=== PATIENT | female | born 1975 | race African-American/Black ===

== ENCOUNTER 2016-10-10 10:00 | Inpatient (IN) | payer OTHER ==
--- NOTE | ~2016-10-10 | PN ---
Unit #: [id number] #: [id number] Patient: SMITA KASPER [id number] [facility] [address] [place] [address] [id number] MR#: [id number] NAME: SMITA KASPER ROOM: P110 Age: 41 Sex: F Admission Date: 10/10/2016 : 1975 Attending Physician: Anuel Manley M.D. Admitting Physician: Anuel Manley M.D. Primary Care Physician: Primary Care Physician Marisol DENNIS PROGRESS NOTES DATE 10/17/2016 DISCUSSION The patient offers no new complaints today. Staff reports that she has had no management or other issues. She is seen today in coverage for Dr. Manley who will resume her care on Thursday. Dictated by... Miles Abel M.D. CB/frieda TD: 10/18/2016 15:08 JOB #: [id number] SONNY PROGRESS NOTES Page 1 of 1 X Miles Abel MD PROGRESS NOTE
--- NOTE | ~2016-10-10 | HP ---
Unit #: [id number] #: [id number] Patient: CHIKA KASPER [id number] [place] [address] [id number] MR#: [id number] NAME: CHIKA KASPER ROOM: P125 Age: 41 Sex: F Admission Date: 10/10/2016 : 1975 Attending Physician: Anuel Manley M.D. Admitting Physician: Anuel Manley M.D. Primary Care Physician: Primary Care Physician No HISTORY AND PHYSICAL HISTORY OF PRESENT ILLNESS Chika is a 41 year old admitted to [address] [place] [address] with psychotic behavior. She is a poor historian, so her history is taken from her chart. PAST MEDICAL HISTORY High blood pressure. PAST SURGICAL HISTORY Nothing reported. ALLERGIES Latuda, Risperdal. SOCIAL HISTORY Smokes less than one-half pack per day. Drinks alcohol on occasion. Denies illicit drug use. FAMILY HISTORY Medically noncontributory. REVIEW OF SYSTEMS She does not answer all questions appropriately. There are no reports of nausea, vomiting, or diarrhea. She has had no cough or increased temperature. CURRENT MEDICATIONS 1. Fanapt 8 mg b.i.d. 2. Trazodone 150 mg q.h.s. 3. Neurontin 300 mg t.i.d. 4. Milk of Magnesia p.r.n. 5. Maalox p.r.n. 6. Tylenol p.r.n. PHYSICAL EXAMINATION GENERAL: Alert, well nourished. No apparent distress. VITAL SIGNS: Blood pressure 105/70, heart rate 94, respirations 16, and temperature 98.6. WEIGHT: 160. HEIGHT: 5 feet 4 inches. SKIN: Warm and dry without rash or lesion. HEENT: Normocephalic. TMs not viewed. Oral and nasal passages clear. Conjunctivae clear. PERRLA. EOMs intact. NECK: Supple without lymphadenopathy or thyromegaly. Unit #: [id number] #: [id number] Patient: CHIKA KASPER HEART: Regular rate and rhythm without murmur. LUNGS: Clear. ABDOMEN: Soft, nontender. : Not done. EXTREMITIES: No evidence of cyanosis, clubbing or edema. Moves all without focal deficit. NEUROLOGICAL: Unable to complete extended exam. She does move all extremities without focal deficit. Hand mails supervisor is equal and gait is normal. IMPRESSION Psychiatric admission. RECOMMENDATIONS PSYCHIATRIC: Per psychiatrist. MEDICAL: I see no contraindication to participate in this facility's activities. MEDICAL PROGNOSIS Good. MEDICAL CONDITION Stable. Dictated by... Caroline Weinstein P.A.-C. for Miranda Hubbard/frieda TD: 10/11/2016 08:35 JOB #: [id number] HISTORY AND PHYSICAL Page 1 of 1 X Caroline Weinstein HISTORY AND PHYSICAL
--- NOTE | ~2016-10-10 | DS ---
Unit #: [id number] #: [id number] Patient: SMITA KUMARI [id number] [facility] [place] [address] [id number] I MR#: [id number] NAME: SMITA KUMARI ROOM: P113 Age: 41 Sex: F Admission Date: 10/10/2016 : 1975 Discharge Date: 10/20/2016 Attending Physician: Anuel Manley M.D. Primary Care Physician: Primary Care Physician No DISCHARGE SUMMARY IDENTIFYING DATA Ms. Kumari is a 41-year-old female, who is a resident of [place], [place] and was self-referred to the hospital on a voluntary basis . DISCHARGE DIAGNOSES Psychiatric: Schizoaffective disorder, bipolar type, most recent episode depressed, recurrent, moderate, with psychosis; cannabis abuse, moderate. Medical: None. Stressors: Moderate psychosocial stressors. HISTORY OF PRESENT ILLNESS Please see initial psychiatric evaluation for details. PAST PSYCHIATRIC HISTORY Please see initial psychiatric evaluation for details. PAST MEDICAL HISTORY Please see initial psychiatric evaluation for details. HOSPITAL COURSE The patient [facility] and was oriented to the hospital environment. Routine p.r.n. medications were initiated, and she was started back on home medications including her Fanapt and trazodone and Neurontin and was closely monitored. She was taking medications regularly and was tolerating them fairly well and was able to show a decent and therapeutic response with improvement in depression and psychosis and was willing to continue treatment on an outpatient basis and as such, it was decided that she will be discharged home and will continue treatment on an outpatient basis. DISCHARGE MEDICATIONS Fanapt 8 mg b.i.d. for psychosis, trazodone 150 mg at bedtime for sleep, Cogentin 0.5 mg b.i.d. for EPS, and Neurontin 300 mg t.i.d. for anxiety. DISCHARGE CONDITION Stable. PROGNOSIS Fair. Dictated by... Anuel Manley M.D. Unit #: [id number] #: [id number] Patient: SMITA KUMARI IAA/modl TD: 10/20/2016 06:47 JOB #: [id number] DISCHARGE SUMMARY Page 1 of 1 X Anuel Manley MD DISCHARGE SUMMARY
--- NOTE | ~2016-10-10 | PN ---
Unit #: [id number] #: [id number] Patient: SMITA KUMARI [id number] [facility] [address] [place] [address] [id number] I MR#: [id number] NAME: SMITA KUMARI ROOM: [facility] Age: 41 Sex: F Admission Date: 10/10/2016 : 1975 Attending Physician: Anuel Manley M.D. Admitting Physician: Anuel Manley M.D. Primary Care Physician: Primary Care Physician Marisol DENNIS PROGRESS NOTES DATE 10/12/2016 DISCUSSION Ms. Kumari is a 41-year-old female with mood disorder and psychosis who was seen today and chart was reviewed and case was discussed with the staff. She remains anxious, withdrawn, disorganized and has not been able to carry on meaningful conversation. However, she has been taking the medications which were just initiated yesterday without any tolerability issues. MENTAL STATUS EXAMINATION Middle-aged white female who was casually dressed with fair personal hygiene, appears to be in no acute distress or discomfort. She was awake and alert with impaired attention and concentration. Her mood was anxious with congruent affect. She denies any suicidal or homicidal ideations. Also, denies any auditory or visual hallucinations. Her insight and judgement remains slightly impaired. TREATMENT PLAN 1. We will continue her on her current medications and treatment protocol. We will monitor her response and make further adjustments as needed. 2. We will continue to follow up. Dictated by... Miranda Pearce/moira TD: 10/13/2016 21:57 JOB #: [id number] Unit #: [id number] #: [id number] Patient: SMITA KUMARI PROGRESS NOTES Page 1 of 1 X Anuel Manley MD PROGRESS NOTE
--- NOTE | ~2016-10-10 | PN ---
Unit #: [id number] #: [id number] Patient: SMITA KASPER [id number] [facility] [address] [place] [address] [id number] I MR#: [id number] NAME: SMITA KASPER ROOM: [facility] Age: 41 Sex: F Admission Date: 10/10/2016 : 1975 Attending Physician: Anuel Manley M.D. Admitting Physician: Anuel Manley M.D. Primary Care Physician: Primary Care Physician Marisol DENNIS PROGRESS NOTES DATE 10/16/2016 DISCUSSION Ms. Michelle is a 41-year-old female who was seen today and chart was reviewed and case was discussed with the staff. She has been anxious, withdrawn though has not shown any agitation, irritability or behavioral problems and has been cooperative with treatment recommendations as he has been taking medications and tolerating them fairly well with no reported side effects. MENTAL STATUS EXAMINATION Middle-aged female who was casually dressed with fair personal hygiene and appears to be in no acute distress or discomfort. She was awake and alert with impaired attention and concentration. Her mood was anxious and depressed with congruent affect. She denies any suicidal or homicidal ideations. Her insight and judgement remains slightly impaired. TREATMENT PLAN 1. Will continue on current medications and treatment protocol. Will monitor her response to the medications and make further adjustments as needed. 2. Will continue to follow up. Dictated by... Anuel Manley M.D. IAA/yobani TD: 10/18/2016 21:52 JOB #: [id number] Unit #: [id number] #: [id number] Patient: SMITA KASPER PROGRESS NOTES Page 1 of 1 X Anuel Manley MD PROGRESS NOTE
--- NOTE | ~2016-10-10 | PN ---
Unit #: [id number] #: [id number] Patient: SMITA KASPER [id number] [facility] [address] [place] [address] [id number] I MR#: [id number] NAME: SMITA KASPER ROOM: P110 Age: 41 Sex: F Admission Date: 10/10/2016 : 1975 Attending Physician: Anuel Manley M.D. Admitting Physician: Anuel Manley M.D. Primary Care Physician: Marisol Primary Care Physician SONNY PROGRESS NOTES DATE 10/14/2016. DISCUSSION Ms. Phillips is a 41-year-old female with mood disorder. The patient was seen and chart was reviewed. The patient was discussed with the staff. She has been anxious, withdrawn and paranoid. She has been cooperative with treatment recommendations. She has been taking medication and tolerating them. She reports no side effects. MENTAL STATUS EXAMINATION The patient is a middle-aged female who is casually dressed with fair personal hygiene. She appears to be in no acute distress or discomfort. She was awake and alert with impaired attention and concentration. Her mood was anxious with congruent affect. Her speech was slow and restricted to content. Her thought processes were disorganized with some looseness of associations. Her insight and judgement remain significantly impaired. TREATMENT PLAN 1. We will continue her on her current medications and treatment protocol. We will monitor her response to the medication and make further adjustments as needed. 2. We will continue to follow her. Dictated by... Miranda Pearce/miki TD: 10/15/2016 13:15 JOB #: [id number] Unit #: [id number] #: [id number] Patient: SMITA KASPER PEAMIRNA PROGRESS NOTES Page 1 of 1 X Anuel Manley MD PROGRESS NOTE
--- NOTE | ~2016-10-10 | PA ---
Unit #: [id number] #: [id number] Patient: SMITA KASPER [id number] [facility] [address] [place] [address] [id number] I MR#: [id number] NAME: SMITA KASPER ROOM: P125 Age: 41 Sex: F Admission Date: 10/10/2016 : 1975 Date of Assessment: Attending Physician: Anuel Manley M.D. Admitting Physician: Anuel Manley M.D. PSYCHIATRIC ASSESSMENT DATE OF SERVICE 10/10/2016. IDENTIFYING DATA Ms. Jacqueline Michelle is a 41-year-old single female, who is a resident of [place], [place], and was self-referred to the hospital on a voluntary basis. CHIEF COMPLAINT "I'm not taking my medicine, I'm out of it." HISTORY OF PRESENT ILLNESS Ms. Jacqueline Michelle is a 41-year-old female with history of mood disorder and substance abuse, who was self-referred to the hospital and reporting that she has been out of the medications and is afraid that what she might end up doing and does not want anything to get it worse and reports presumably getting away with what she actually did; however, the patient reports getting a charge for criminal trespassing and she was not able to detail the situation reporting that she was feeling confused and she stared at the assessment staff and repeated the same thing over and over and stated that she was getting her medications refilled from [facility], but reports that she now has not seen the doctor to get the refills and reports that she has not been taking her medications and has not taken them for the last couple of weeks and that she has been decompensating and reports going to correction due to being in a neighborhood for a man and hearing voices that tell her to do things like kill a specific man in the neighborhood and the patient reports that she has been hearing voices to kill the specific man and another woman. The patient reports this man and woman are friends and she takes the medications and has refilled it from [facility] and has been diagnosed and treated for schizophrenia and bipolar and reports not wanting to harm herself as she does not want to go to hell. She was seen to be quite disorganized, agitated, irritable, and danger to self and others and as such, a recommendation for inpatient level of care for safety and stabilization was made and the patient was transferred to us. SUBSTANCE ABUSE HISTORY The patient reports occasional experimentation with cannabis, but denies any other drug abuse. PAST PSYCHIATRIC HISTORY The patient has had a history of inpatient and outpatient psychiatric treatment and has been diagnosed and treated for schizoaffective disorder. Unit #: [id number] #: [id number] Patient: SMITA KASPER Review of the medical records indicate that she is supposed to be on Fanapt, gabapentin, and trazodone, but has been off the medication and has been decompensating. PAST MEDICAL HISTORY The patient's medical history is insignificant. ALLERGIES No known medication allergies. PERSONAL AND SOCIAL HISTORY A 41-year-old female, who reports that she is single, unemployed, and lives at home with her parents and has fairly decent social support system. MENTAL STATUS EXAMINATION Middle-aged female, who was casually dressed with fair personal hygiene, appears to be in no acute distress or discomfort. She was awake and alert on interaction with intact orientation to time, place, and person. Her mood was anxious and depressed with a congruent affect. Her speech was fluent and tangential. Her thought processes were disorganized with some looseness of associations and flight of ideas and paranoid ideations and delusional behavior. Her insight and judgment remain significantly impaired. DIAGNOSTIC IMPRESSION Psychiatric: Schizoaffective disorder, bipolar type, most recent episode depressed, recurrent, moderate, with psychosis and cannabis abuse, moderate. Medical: None. Stressors: Moderate psychosocial stressors. TREATMENT PLAN 1. The patient has presented with a history of chronic mental illness and has been decompensating due to poor compliance with medications and will need inpatient hospitalization for safety and stabilization. We will start her back on her home medications and we will adjust the medications and monitor response. 2. Supportive therapy was provided to the patient. 3. Safe, structured, and nourishing environment will be provided. ESTIMATED LENGTH OF STAY 5 to 7 days. ABILITY TO HELP SELF Limited. WILLINGNESS TO HELP SELF The patient appears to be willing to help self. STRENGTHS 1. Communicative. 2. Cooperative. PROBLEMS 1. Chronic dysphoric symptoms. 2. Poor social support system. DISCHARGE CRITERIA This will be contingent upon the patient's ability to show resolution of Unit #: [id number] #: [id number] Patient: SMITA KASPER her depression and psychosis and her ability to stay safe to herself, particularly after discharge from the hospital. Dictated by... Miranda Pearce/soo TD: 10/11/2016 11:24 JOB #: [id number] PSYCHIATRIC ASSESSMENT Page 1 of 1 X Anuel Manley MD X PSYCHIATRIC ASSESSMENT
--- NOTE | ~2016-10-10 | PN ---
Unit #: [id number] #: [id number] Patient: SMITA KASPER [id number] [facility] [address] [place] [address] [id number] I MR#: [id number] NAME: SMITA KASPER ROOM: P110 Age: 41 Sex: F Admission Date: 10/10/2016 : 1975 Attending Physician: Anuel Manley M.D. Admitting Physician: Anuel Manley M.D. Primary Care Physician: Primary Care Physician Marisol SHEPPARD NOTES DATE 10/13/2016 DISCUSSION Ms. Michelle is a 41-year-old female who was seen today and chart was reviewed and case was discussed with the staff. She remains anxious, withdrawn and rather seclusive to herself. Meanwhile, she has been cooperative with treatment recommendations. She has been taking medications and tolerating them fairly well with no reported side effects. MENTAL STATUS EXAMINATION Middle-aged female who was casually dressed with fair personal hygiene, appears to be in no acute distress or discomfort. She was awake and alert with impaired attention and concentration. Her mood was anxious with congruent affect. Her speech was slow and restricted to content. Her thought processes were disorganized with some looseness of associations. Her insight and judgement remains significantly impaired. TREATMENT PLAN 1. We will continue her on her current medications and treatment protocol. We will monitor her response to the medication and make further adjustments as needed. 2. We will continue to follow up. Dictated by... Miranda Pearce/moira TD: 10/14/2016 22:22 JOB #: [id number] Unit #: [id number] #: [id number] Patient: SMITA KASPER DEBORAHMIRNA PROGRESS NOTES Page 1 of 1 X Anuel Manley MD PROGRESS NOTE
--- NOTE | ~2016-10-10 | PN ---
Unit #: [id number] #: [id number] Patient: SMITA KUMARI [id number] [facility] [address] [place] [address] [id number] I MR#: [id number] NAME: SMITA KUMARI ROOM: P110 Age: 41 Sex: F Admission Date: 10/10/2016 : 1975 Attending Physician: Anuel Manley M.D. Admitting Physician: Anuel Manley M.D. Primary Care Physician: Marisol Primary Care Physician PEAMIRNA PROGRESS NOTES DATE October 15, 2016. DISCUSSION Ms. Kumari is a 41-year-old, -Monegas[place] female who was seen today and chart was reviewed. Her case was discussed with the staff. She has been anxious, withdrawn, and rather seclusive to herself. Meanwhile, she has been cooperative with treatment recommendations and has been taking the medications and tolerating them fairly well with no reported side effects. MENTAL STATUS EXAMINATION Middle age, -[place]onegas[place] female who was casually dressed with a fair personal hygiene and appears to be in no acute distress or discomfort. She was awake and alert with impaired attention and concentration. Her mood was (1) affect. Her speech was pressured and tangential. Her thought process was disorganized with looseness of association and flight of ideas. She denies any suicidal or homicidal ideation and also denies any auditory or visual hallucinations. Her insight and judgement remain significantly impaired. TREATMENT PLAN 1. We will continue on current medications and treatment protocol. Will monitor her response to medications and make further adjustments as needed. 2. We will continue to follow up. Dictated by... Miranda Pearce/mercedes TD: 10/17/2016 07:26 JOB #: [id number] Unit #: [id number] #: [id number] Patient: SMITA KUMARI PEAMIRNA PROGRESS NOTES Page 1 of 1 X Anuel Manley MD PROGRESS NOTE
--- NOTE | ~2016-10-10 | PN ---
Unit #: [id number] #: [id number] Patient: SMITA KASPER [id number] [facility] [address] [place] [address] [id number] MR#: [id number] NAME: SMITA KASPER ROOM: [facility] Age: 41 Sex: F Admission Date: 10/10/2016 : 1975 Attending Physician: Anuel Manley M.D. Admitting Physician: Anuel Manley M.D. Primary Care Physician: Primary Care Physician Marisol DENNIS PROGRESS NOTES DATE 10/11/2016 DISCUSSION Ms. Michelle is a 41-year-old female who was seen today and chart was reviewed and case was discussed with the staff. She has been anxious, withdrawn though has not shown any agitation, irritability has been cooperative with treatment recommendations as she has been taking the medications and tolerating them fairly well with no reported side effects. MENTAL STATUS EXAMINATION Middle-aged female who was casually dressed with fair personal hygiene, appears to be in no acute distress or discomfort. She was awake and alert with impaired attention and concentration. Her mood was anxious with congruent affect. Her speech was fluent and tangential. Her thought processes were disorganized with some looseness of associations and flight of ideas, paranoid ideations and auditory or visual hallucinations. Her insight and judgement remains significantly impaired. TREATMENT PLAN 1. We will continue her on her current medications and treatment protocol. We will monitor her response to the medications and make further adjustments as needed. 2. We will continue to follow up. Dictated by... Miranda Pearce/moira TD: 10/13/2016 01:37 JOB #: [id number] Unit #: [id number] #: [id number] Patient: SMITA KASPER PROGRESS NOTES Page 1 of 1 X Anuel Manley MD PROGRESS NOTE
--- NOTE | ~2016-10-10 | PN ---
Unit #: [id number] #: [id number] Patient: SMITA KASPER [id number] [facility] [address] [place] [address] [id number] MR#: [id number] NAME: SMITA KASPER ROOM: 13 Age: 41 Sex: F Admission Date: 10/10/2016 : 1975 Attending Physician: Anuel Manley M.D. Admitting Physician: Anuel Manley M.D. Primary Care Physician: Primary Care Physician Marisol DENNIS PROGRESS NOTES DATE 10/19/2016 DISCUSSION The patient is seen in the dayroom today. She is presently interacting with peers and offers no new complaints. Dr. Manley will reassume care of the patient on 10/20/2016. Dictated by... Miles Abel M.D. CB/moira TD: 10/20/2016 04:31 JOB #: [id number] SONNY PROGRESS NOTES Page 1 of 1 X Miles Abel MD PROGRESS NOTE
--- NOTE | ~2016-10-10 | PN ---
Unit #: [id number] #: [id number] Patient: SMITA KUMARI [id number] [facility] [address] [place] [address] [id number] MR#: [id number] NAME: SMITA KUMARI ROOM: P110 Age: 41 Sex: F Admission Date: 10/10/2016 : 1975 Attending Physician: Anuel Manley M.D. Admitting Physician: Anuel Manley M.D. Primary Care Physician: Primary Care Physician Marisol SHEPPARD NOTES DATE OF SERVICE: 10/17/2016 SUBJECTIVE Ms. Kumari is a 41-year-old female, who was seen today and chart was reviewed and the case was discussed with the staff. She has been anxious, irritable, impulsive, with elated mood, pressured speech, flight of ideas, and has been exhibiting some acute psychosis and hearing voice is telling that the aliens are coming down and she wants to know if I can help her develop some strategies and save some food before the alien invasion and has some difficulty to be redirected and has been exhibiting out of touch with reality, behavior, and significant paranoia and delusional behavior. She has been taking she medications, but has not yet been able to show a therapeutic response. MENTAL STATUS EXAMINATION Middle-aged female, who was casually dressed with fair personal hygiene and appears to be in no acute distress or discomfort. She was awake and alert with impaired attention and concentration. Her mood was anxious with a congruent affect. She denies any suicidal or homicidal ideations. Her insight and judgment remain significantly impaired. TREATMENT PLAN 1. We will continue her on her current medications and treatment protocol. We will monitor her response and make further adjustments as needed. 2. We will continue to follow up. Dictated by... Miranda Pearce/soo TD: 10/17/2016 18:17 JOB #: [id number] Unit #: [id number] #: [id number] Patient: SMITA KUMARI PEAMIRNA PROGRESS NOTES Page 1 of 1 X Vineet,Anuel BOYD X PROGRESS NOTE
[2016-10-11 11:19] LABS: BASOPHIL% 0.8 % (0-2.5); EOSINOPHIL# 0.2 X10e3 (0-0.7); EOSINOPHIL% 4.5 % (0.0-7.0); HEMATOCRIT 37.4 % (35.0-45.0); HEMOGLOBIN 12.2 gm/dL (12.0-16.0); LYMPHOCYTE# 1.9 X10e3 (1.0-3.5); MEAN CELL VOLUME 89.7 FL (83-96); MEAN CORPUSCULAR HEMOGLOBIN 29.3 PG (28-34); MEAN CORPUSCULAR HGB CONC 32.7 g/dL (30-36); MEAN PLATELET VOLUME 8.5 FL (6.5-11.5); MONOCYTE# 0.4 X10e3 (0-1.0); NEUTROPHIL# 1.7 X10e3 (1.5-7.1); NEUTROPHIL% 40.7 % (40-75); PLATELET COUNT 219 X10e3 (140-420); RED BLOOD COUNT 4.17 X10e (3.90-5.30); RED CELL DISTRIBUTION WIDTH 14.6 % (11.0-15.5); WHITE BLOOD COUNT 4.2 X10e3 (4.0-10.5)
[2016-10-11 11:20] LABS: DIFF IND NO
[2016-10-11 13:21] LABS: THYROID STIMULATING HORMONE 1.11 uIU/ml (0.34-5.60)
[2016-10-11 13:31] LABS: FREE THYROXIN (T4) 0.8 ng/dL (0.58-1.64)
[2016-10-11 13:34] LABS: ALBUMIN SERUM 3.9 g/dL (3.5-5.0); BUN/CREATININE RATIO 16.66; CALCIUM SERUM 8.8 mg/dL (8.4-10.2); CREATININE SERUM 0.6 mg/dL (0.6-1.4); GLOM FILT RATE Estimated 130.3 mL/min (>60); POTASSIUM 4.4 mmol/L (3.5-5.1); PROTEIN TOTAL SERUM 6.8 g/dL (6.0-8.3)
== END 2016-10-20 09:42 | disposition home or self-care (01) | DRG 885 ==
LOC: P1S 10:00 → POF 10-12 17:42 → P1S 10-12 17:45
PROVIDERS: Psychiatry & Neurology Psychiatry
DX: F25.0 Schizoaffective disorder, bipolar type (principal); F29 Unspecified psychosis not due to a substance or known physiological condition; F12.10 Cannabis abuse, uncomplicated; Z56.0 Unemployment, unspecified
CPT/HCPCS: 80053; 84439; 84443; 84703; 85025